=== PATIENT | female | born 1985 | race African-American/Black ===

== ENCOUNTER 2018-09-20 09:18 | Inpatient (IN) | payer BC, OTHER ==
[2018-09-20 09:38] LABS: Bilirubin Negative (Negative); Blood, Urine Moderate (Negative); Clarity CLOUDY (Clear); Glucose, Urine (Dipstick) 100 mg/dL (Negative); Leukocyte Negative (Negative); Nitrite Negative (Negative); Protein, Urine (Dipstick) > or equal to 300 mg/dL (Neg-Trace); Specific Gravity, Urine 1.017 (1.002-1.036); Urobilinogen 0.2 mg/dL (0.2-1.0); pH, Urine 6.5 (5.0-9.0)
[2018-09-20 09:40] LABS: RBC/HPF 0-3 HPF (0-3)
[2018-09-20 09:44] LABS: BHCG - Serum POSITIVE; Pregs Control Background? CLEAR/WHITE (CLR/WHITE); Pregs Control Bar Appear? YES (CONTROL BAR)
[2018-09-20 09:44] LABS: Pathc Cast-AUWi Flag 11.42 (0-2.49)
[2018-09-20 09:58] LABS: Amphetamine Not Detected (NotDetected); Barbiturates Screen Not Detected (NotDetected); Benzodiazepine Screen Not Detected (NotDetected); Cocaine Metabolite Screen Detected (NotDetected); Medtox Control Line Valid? VALID (VALID); Medtox Reader # READER 4; Methadone Not Detected (NotDetected); Methamphetamine Not Detected (NotDetected); Opiate Screen Not Detected (NotDetected); Oxycodone Screen Not Detected (NotDetected); Phencyclidine (PCP) Detected (NotDetected); THC/Cannabinoid Screen Not Detected (NotDetected); Tricyclic Screen Not Detected (NotDetected)
[2018-09-20 10:00] LABS: Bacteria/HPF Rare-Few HPF (None Seen); Hyaline Casts/LPF 0-3 HYALINE CAST LPF (0-3 Hyaline); Renal Epithelial None Seen HPF (0-3); Squamous Epithelial 0-3 HPF (0-3); Transitional Epithelial NONE SEEN HPF (0-3)
[2018-09-20] MEDS ORDERED: Labetalol HCl 100 MG/20 ML VIAL SLOW IVP SCH (10:01)
[2018-09-20] MEDS ORDERED: Calcium Gluc 4.6 MEQ/10 ML (100 MG/ML) SLOW IVP PRN (10:01)
[2018-09-20 10:02] LABS: ALT (SGPT) 11 U/L (8-55); AST (SGOT) 20 U/L (5-34); Albumin 2.9 g/dL (3.5-5.0); Alkaline Phosphatase 165 U/L (40-150); Anion Gap 20 mmol/L (10-20); BUN (Urea Nitrogen) 14 mg/dL (8.9-20.6); Bilirubin, Total 0.3 mg/dL (0.2-1.2); Calc. Creatinine Clearance 0 mL/min (70-130); Calcium 9.2 mg/dL (7.8-10.44); Carbon Dioxide 15 mmol/L (22-29); Chloride 107 mmol/L (98-107); Estimated GFR-MDRD 67; Globulin 3.7 g/dL (2.4-3.5); Glucose 100 mg/dL (70-105); Potassium 3.3 mmol/L (3.5-5.1); Protein, Total 6.6 g/dL (6.0-8.3); Sodium 139 mmol/L (136-145)
[2018-09-20 10:13] LABS: #Basophils 0.2 thou/uL (0.0-0.2); #Lymphocytes 4.9 thou/uL (1.20-3.40); #Monocytes 1.1 thou/uL (0.11-0.59); #Neutrophils 11.5 thou/uL (1.40-6.50); %Basophils 0.9 % (0.0-1.0); %Eosinophils 0.2 % (0.0-10.0); %Lymphocytes 27.6 % (21.0-51.0); %Monocytes 6.4 % (0.0-10.0); %Neutrophils 64.9 % (42.0-75.0); Lymphocytes 25 % (21-51); MDiff Complete? YES; Mean Corpuscular HGB CONC 32.9 g/dL (32.0-36.0); Mean Platelet Volume 9.3 fL (7.4-10.4); Monocytes 6 % (0-10); Neutrophil 69 % (42-75); Platelet Count 300 thou/uL (130-400); Platelet Morphology Comment Appears Adequate; Polychromasia SLIGHT = 2-3 cells (100X) (0-2/hpf); RBC Distribution Width 15.4 % (11.5-14.5); Red Blood Cell (RBC) Count 5.02 mill/uL (4.70-6.10); White Blood Cell (WBC) Count 17.7 thou/uL (4.8-10.8)
[2018-09-20 10:21] LABS: Acetaminophen Less than 6.0 mcg/mL (10.0-30.0); Alcohol Less than 10 mg/dL (Less than 10); Salicylate Less than 8.0 mg/dL (15.0-30.0)
--- NOTE | 2018-09-20 10:26 | PDOC.LDHP ---
Labor and Delivery H&P Chief complaint: other (Elevated BPs) HPI: 35 y/o at unknown EGA presented to ED with syncopal episode after cocaine, PCP use. Known to be but thought she was only 2-3 months. No PNC. Denies VB, LOF, pain or other concerns. Hit her right eye when she fell. ROS neg for HEENT, CV, pulm, GI, , neuro, psych, skin, musculoskeletal, or constitutional symptoms other than mentioned above. OB History Details: 1 prior miscarriage at "5 months" - doesn't remember who took care of her. Delivered here. Reports secondary to high blood pressure Current complications: none Past Medical History: Hypertension Current medications: none Previous surgical history: none Social history: drug use (cocaine, PCP) - Physical Exam Abnormal vital signs: Severe range BPs General: NAD, resting, other (right eye periorbital edema noted) Lungs: nonlabored breathing Abdomen: gravid Extremeties: no edema - OB Labs Blood type: A RH: positive Antibody Screen: negative - Assessment Severe range BPs after drug use with unknown history - Plan -: 1. Admit to L&D 2. US for dating 3. Antihypertensive medications - has received 60mg IV labetalol in ED 4. Celestone 5. NICU consult 6. Anesthesia consult 7. Follow up labs ordered 8. Magnesium 4g bolus, 2g per hour
[2018-09-20] MEDS ORDERED: Magnesium Sulfate 20 gm/500 ml 20 GM/500 ML BAG ONE (10:40)
[2018-09-20] MEDS ORDERED: Magnesium Sulfate 20 GM/WATER 500 ML BAG IVPB SCH (10:45)
[2018-09-20] MEDS ORDERED: Betamet Acet/Betamet Na Ph 30 MG/5 ML VIAL ONE (10:47)
[2018-09-20] MEDS ORDERED: Succinylcholine Chloride 20 MG/ML 10 ml SYRINGE FS ONE (10:48)
[2018-09-20] MEDS ORDERED: Rocuronium Bromide 10 MG/ML (10ML VIAL) ONE ×2 (10:48→11:41)
[2018-09-20] MEDS ORDERED: PROPOFOL 200 MG/20 ML VIAL ONE (10:48)
[2018-09-20] MEDS ORDERED: PHENYLEPHRINE-NS 100 MCG/ML 10 ML SYRINGE ONE ×2 (10:48→12:41)
[2018-09-20] MEDS ORDERED: hydrALAZINE 20 MG/ML VIAL ONE ×2 (11:04→11:12)
[2018-09-20] MEDS ORDERED: Labetalol HCl 100 MG/20 ML VIAL ONE (11:08)
[2018-09-20] MEDS ORDERED: hydrALAZINE 20 MG/ML VIAL SLOW IVP SCH (11:15)
[2018-09-20 11:25] LABS: HBSAg Index 0.25 S/CO (0-0.99); HIV (1/2) Antibody/Antigen Non-Reactive (NonReactive); HIV 1/2 INDEX 0.15 S/CO (<1.00); Hep B Surf Ag Non-Reactive S/CO (NonReactive); Syphilis Antibody Nonreactive (Nonreactive); Syphilis Antibody Index 0.03 S/CO (<1.00 Non-Reactive)
[2018-09-20] MEDS ORDERED: Oxytocin 10 UNITS/ML VIAL ONE (11:47)
[2018-09-20] MEDS ORDERED: Fentanyl 100 MCG/2 ML VIAL ONE ×2 (11:55)
[2018-09-20] MEDS ORDERED: Midazolam HCl 2 mg/2 ml Vial ONE (11:57)
[2018-09-20 11:58] LABS: Actual Bicarbonate (HCO3a) 21.9 mEq/L (22-28); Base Excess (BEa) -8.6 mEq/L (-2.0 to +3.0)
[2018-09-20] MEDS ORDERED: PROPOFOL 0 ML ONE (12:34)
[2018-09-20] MEDS ORDERED: Propofol 1,000 MG/100 ML VIAL IV ONE (13:02)
[2018-09-20] MEDS ORDERED: Ventilator Sedation Protocol 1 EACH FS ONE (13:07)
[2018-09-20] MEDS ORDERED: Morphine 2 MG/ML SYRINGE SLOW IVP PRN (13:13)
[2018-09-20] MEDS ORDERED: DISCONTINUE PREVIOUS NARCOTIC PAIN MEDICATIONS AND BENZODIAZEPINES FS SCH (13:13)
[2018-09-20] MEDS ORDERED: Fentanyl BOLUS 250 ML IVPB PRN (13:13)
[2018-09-20] MEDS ORDERED: fentaNYL Citrate/PF 2,000 MCG in Sodium Chloride 0.9% 60 ML IV SCH (13:13)
--- NOTE | 2018-09-20 13:19 | ULT ---
OBSTETRICAL ULTRASOUND: INDICATIONS: History of pre-eclampsia and history of fall. Positive for PCP and cocaine. FINDINGS: There is a single live intrauterine gestation, in vertex presentation. Cardiac activity is noted at 111 beats per minute. The amniotic fluid level appears low, qualitatively. The JAYDA measured 3.9 cm. This is well below the 2.5th percentile for gestational age. This and advanced gestational age shaffer its the survey. The cervical length was 3.6 cm. The biparietal diameter measured 7.66 cm, giving an estimated gestational age of 30 weeks 5 days. The head circumference measured 28.71 cm, giving a gestational age of 31 weeks 4 days. The abdominal circumference measured 26.35 cm, giving a gestational age of 30 weeks 3 days. The femoral length measured 5.8 cm, giving a gestational age of 30 weeks 5 days. Estimated weight is 1615 g, plus or minus 239 g. The average gestational age, based on biometrics, is 30 weeks 6 days. Estimated due date is . On the biophysical profile, there was 0/2 for tone, 0/2 for breathing, 0/2 for move ment, and 1/2 for amniotic fluid index. IMPRESSION: 1. Biophysical profile of 07/10. The examination was verbally reported to the obstetrical/gynecologic al nurse, Sarah, at the time of this examination, by the lift team technician. 2. Oligohydramnios. 3. Advanced gestational age and limited amniotic fluid volume limits survey. 4. The fetus is in a vertex presentation with an anterior placenta without overt evidence of previa. The cervical length is 3.6 cm. POS: [facility]
[2018-09-20] MEDS ORDERED: Vecuronium 10 MG VIAL ONE (13:26)
[2018-09-20] MEDS: Vecuronium 10 MG VIAL IV PRN ×3 (13:30→20:50)
--- NOTE | 2018-09-20 13:32 | PDOC.EVN ---
Event Note - Event Note Event Note: Late Entry: Patient given a total of 180mg of Labetalol and 30mg of hydralazine with little to no improvement of blood pressures. assessment with ultrasound revealed a 30+ week fetus with a BPP of 0/8. BPP assessment completed with NST showing minimal variability and recurrent late decelerations and the decision was made to proceed with emergent LTCS. This was explained to the patient who verbally agreed but due to her being under the influence of drugs, consent was also obtained from her brother. See op note for full details of the procedure. Patient to ICU following surgery for further medical management. Head trauma has not been evaluated but patient was verbal and able to move all extremities prior to surgery.
--- NOTE | 2018-09-20 13:33 | PDOC.OPDEL ---
OB Operative/Delivery Note Delivery Dr/Surgeon: Lisa Garcia MD Assist: Ivelisse Cruz MD Pre-Delivery Diagnosis: non-reassuring tracing Procedure/Post Delivery Dx: primary low transverse CS Weeks gestation: 30 Anesthesia: other (general) - Findings A Sex: male Weight: 3 lb 8.438 oz - 1 min: 7 - 5 min: 8 - Additional Findings/Plan Placenta delivered: spontaneous findings: low transverse hysterotomy without extension, normal uterus, normal tubes, normal ovaries Estimated blood loss: QBL 522ml Compilations/Other Findings: Male with spontaneous cry, NICU present for delivery. Post delivery plan: recovery in LICU (CCU)
[2018-09-20] MEDS: Betamet Acet/Betamet Na Ph 30 MG/5 ML VIAL IM SCH (13:49)
[2018-09-20] MEDS: Lactated Ringer's 1,000 ML IV SCH ×2 (13:50→20:12)
[2018-09-20 13:53] LABS: Actual Bicarbonate (HCO3a) 18.5 mEq/L (22-28); Base Excess (BEa) -6.6 mEq/L (-2.0 to +3.0); CO2 Tension 35.8 mmHg (35.0-45.0); Calcium, Ionized 1.19 mmol/L (1.12-1.30); Carboxyhemoglobin (COHb) 1.1 gm% (0.0-3.0); Hemoglobin (Hb) 13.6 g/dL (12.0-16.0); O2 Tension (PaO2) 69.9 mmHg (80.0-100.0); Potassium - ABG Lab 3.25 mmol/L (3.70-5.30); pH, Arterial 7.33 (7.35-7.45)
[2018-09-20] MEDS ORDERED: Sterile Water 10 ML ONE ×2 (14:20→19:56)
--- NOTE | 2018-09-20 15:26 | CT ---
CT HEAD NONCONTRAST: Date: 09/20/18 INDICATION: Fall with head injury, pain. FINDINGS: There is marked abnormal hypoattenuation insinuating within bilateral cerebral white matter, more ext ensive on the left, although is diffusely present throughout each cerebral hemisphere. There is no ve ntriculomegaly, mass effect, or midline shift. No parenchymal hemorrhage or extra-axial hemorrhage of acuity evident. There is scattered paranasal sinus mucosal thickening. There is focal mild scalp pro minence of the posterior right parietooccipital scalp and mild bilateral periorbital soft tissue prom inence. IMPRESSION: Diffuse infiltrating white matter hypodensity throughout each cerebral hemisphere, more pronounced on the left. This may relate to posterior reversible encephalopathy syndrome, in light of patient's per ipartum state. Alternatively, an infectious/inflammatory encephalitis should be considered. Recommend pre and postcontrast brain MRI for further evaluation. Telephone call findings placed to patient's physician, Aly Balderas MD, 1410 hours, 09/20/18. CODE CR.
[2018-09-20] MEDS: hydrALAZINE 20 MG/ML VIAL SLOW IVP PRN ×2 (15:59→20:12)
--- NOTE | 2018-09-20 16:06 | OP ---
DATE OF PROCEDURE: 09/20/2018 PREOPERATIVE DIAGNOSES: 1. Estimated 30-week intrauterine . 2. Drug abuse - Cocaine and PCP 3. Hypertensive emergency. 4. Non-reassuring status. POSTOPERATIVE DIAGNOSES: 1. Estimated 30-week intrauterine . 2. Drug abuse - Cocaine and PCP 3. Hypertensive emergency. 4. Non-reassuring status. PROCEDURE PERFORMED: Emergent low-transverse section. SURGEON: Lisa Garcia MD [employer] AL[employer]ATION: Ivelisse Cruz MD ANESTHESIA: General endotracheal. COMPLICATIONS: None. QUANTITATIVE BLOOD LOSS: 522 mL. FINDINGS: Normal uterus, tubes, and ovaries. Male infant in cephalic presentation with spontaneous cry. INDICATIONS: The patient presented after a syncopal episode following cocaine and PCP use. She stated she was unaware that she was . Once she arrived to the emergency department and she was found to be more than 20 weeks gestation, she was sent to Labor and Delivery for evaluation. She was found to have blood pressures in the 200s systolic which had minimal to no improvement following a total of 180 mg of labetalol and 30 mg of hydralazine. assessment was performed for dating and a BPP was performed which was essentially 0/8. The assessment was completed with an NST which showed minimal to absent variability with recurrent late decelerations. The decision was made to proceed with emergent low-transverse section, so that further stabilization of the mom and baby could occur. DESCRIPTION OF PROCEDURE: The patient was taken to the operating room where general anesthesia was obtained without difficulty. She was prepared and draped in normal sterile fashion in the dorsal supine position with a leftward tilt. A Pfannenstiel skin incision was made with a scalpel and carried down to the underlying layer of fascia. The fascia was incised with a scalpel and extended laterally with Hernández scissors. The rectus fascia was dissected off the rectus muscles bluntly. The rectus muscles were in the midline. The peritoneum was entered bluntly and extended superiorly and inferiorly with good visualization of the bladder. The Curly retractor was placed in the abdomen. A lower uterine incision was made with a scalpel and extended with cephalocaudal traction. The infant's head was delivered atraumatically and the cord was clamped and cut. The infant was handed off to the waiting NICU team, but was noted to have a spontaneous cry. The placenta was delivered spontaneously and the uterus was cleared of all clots and debris. The hysterotomy was repaired in a running locked fashion with #1 Monocryl in two layers with good hemostasis noted. The abdomen was copiously irrigated. The Curly retractor was removed and again good hemostasis was noted. The fascia was repaired in a running fashion with 0 PDS. The subcutaneous tissue was reapproximated and the skin was closed with 4-0 Monocryl. The patient tolerated the procedure. Sponge, lap, and needle counts were correct x2. The patient was taken to the ICU intubated as planned prior to procedure for further management of her hypertensive crisis and potential withdrawal from drugs. Job ID: [id number] MTDD
[2018-09-20] MEDS: Propofol 1,000 MG/100 ML VIAL IV PRN ×3 (17:40→23:59)
--- NOTE | 2018-09-20 18:37 | MRI ---
MRI OF BRAIN WITH AND WITHOUT CONTRAST: 09/20/18 HISTORY: Hypertensive encephalopathy. COMPARISON: CT brain same day. FINDINGS: Corresponding to the CT findings are extensive bilateral relatively symmetric frontal, parietal, occi pital cortical and subcortical white matter hyperdensities. There is also involvement of the cerebell um as well as the daisy. There is a subtle focus of left frontal linear microhemorrhage at the cortica l and subcortical junction. This is best seen on the gradient axial image 19. No pontine hemorrhage i s appreciated. There is involvement of the bilateral thalami as well as both basal ganglia. There is no midline shift. No significant mass effect. No mass-like enhancement. Mild mucosal thickening of the ethmoids. On the diffusion weighted sequence, there are no focal areas of abnormal diffusion restriction. IMPRESSION: Findings suggesting posterior reversible encephalopathy syndrome. Subtle focus of hemorrhage in the left frontal intraparenchymal subcortical white matter. POS: [facility]
[2018-09-20] MEDS: Magnesium Sulfate 20 gm/500 ml 20 GM/500 ML BAG IVPB SCH (19:40)
[2018-09-20] MEDS: niCARdipine HCl 50 MG in Sodium Chloride 0.9% 250 ML 230 ML IVPB SCH (20:31)
--- NOTE | 2018-09-21 00:23 | CON ---
DATE OF CONSULTATION: HISTORY OF PRESENT ILLNESS: Ms. Hall is 33-year-old. I am told by the nursing staff that she has lost a baby with miscarriage in the past. She presented after being found down at home. She apparently fell and hit her face on the floor. There is no history of an altercation. She was found to be in the emergency department. Apparently, she could give an intermittent history and claims she did not know she was . She subsequently was found to have an intrauterine that was in distress and the baby was delivered via after she was intubated. Unfortunately, her drug screen is positive for PCP and cocaine. She subsequently was transferred to critical care unit. We have done a head CT which did not show a bleed. An MRI is being done to rule out hypertensive encephalopathy. She was apparently significantly hypertensive on admission. Last blood pressure in the Critical Care Unit for going down for the MRI was 144/101, heart rate was 66. PAST MEDICAL HISTORY: Otherwise unknown. FAMILY HISTORY: Unknown. SOCIAL HISTORY: As above. REVIEW OF SYSTEMS: Not obtainable. PHYSICAL EXAMINATION: GENERAL: She is intubated. VITAL SIGNS: Blood pressure 144/101, heart rate is in the 60s, respiratory rate is per mechanical ventilation. HEENT: Pupils are equal. Sclerae anicteric. NECK: Supple. No lymphadenopathy. LUNGS: Clear. HEART: Regular rhythm, S1 and S2 normal. ABDOMEN: Soft and nontender. EXTREMITIES: Without clubbing, cyanosis, or edema. She has a bandage over her low incision. LABORATORY DATA: PH 7.33, pCO2 of 35, pO2 of 69. White count 17.7, hemoglobin 14, platelets 300. Sodium 139, potassium 3.3, chloride 107, bicarb 15, BUN 14, creatinine 1.47, alkaline phosphatase 165, albumin 2.9. Liver enzymes were normal. Glucose 111. Urinalysis was remarkable for significant proteinuria, greater than 300 mg/dL protein. IMPRESSION: Encephalopathy on presentation, most likely related to complications of and hypertension. She will remain mechanically ventilated. We will obtain MR imaging. There is no reason to think that she has encephalitis or meningitis. This was in the differential for the CT scan findings. We will try to control her blood pressure with sedation and Cardene if necessary. We will follow the other physicians caring for her. CRITICAL CARE TIME: 40 minutes. Job ID: [id number]
[2018-09-21] MEDS: Vecuronium 10 MG VIAL IV PRN ×4 (01:38→22:05)
[2018-09-21] MEDS: Propofol 1,000 MG/100 ML VIAL IV PRN ×4 (03:55→20:08)
[2018-09-21 05:32] LABS: Anion Gap 16 mmol/L (10-20); BUN (Urea Nitrogen) 17 mg/dL (7.0-18.7); Calc. Creatinine Clearance 117 mL/min (70-130); Calcium 8.1 mg/dL (7.8-10.44); Carbon Dioxide 20 mmol/L (22-29); Chloride 105 mmol/L (98-107); Estimated GFR-MDRD 50; Glucose 109 mg/dL (70-105); Potassium 3.6 mmol/L (3.5-5.1); Sodium 137 mmol/L (136-145)
[2018-09-21] MEDS: Magnesium Sulfate 20 gm/500 ml 20 GM/500 ML BAG IVPB SCH (05:47)
[2018-09-21 07:15] LABS: Actual Bicarbonate (HCO3a) 23.4 mEq/L (22-28); Base Excess (BEa) -1.4 mEq/L (-2.0 to +3.0); CO2 Tension 39.9 mmHg (35.0-45.0); Calcium, Ionized 1.11 mmol/L (1.12-1.30); Carboxyhemoglobin (COHb) 0.7 gm% (0.0-3.0); Hemoglobin (Hb) 12.7 g/dL (12.0-16.0); O2 Tension (PaO2) 78.7 mmHg (80.0-100.0); Potassium - ABG Lab 3.29 mmol/L (3.70-5.30); pH, Arterial 7.39 (7.35-7.45)
--- NOTE | 2018-09-21 07:16 | RAD ---
CHEST ONE VIEW: INDICATIONS: Intubation. COMPARISON: Prior chest radiograph dated 11/22/2006. FINDINGS: The patient is intubated with the ET tube at the thoracic inlet. A gastric catheter projects below t he left hemidiaphragm, beyond the field of view. There is moderate cardiomegaly with mild pulmonary vascular congestion, and small bilateral pleural effusions. No definite pneumothorax is evident. IMPRESSION: 1. Cardiomegaly with pulmonary vascular congestion and mild bilateral pleural effusions. Recommend correlation for volume overload. 2. Endotracheal tube and gastric catheter. POS: [facility]
[2018-09-21 07:17] LABS: ALV-art Gradient 227.925 (0-20); Puncture Site RRA
--- NOTE | 2018-09-21 07:45 | PDOC.PP ---
Post Progress Note Post Day #: 1 Subjective: Intubated and sedated, unable to obtain history. Vital Signs (12 hours) Temp Pulse Resp BP Pulse Ox 09/21/18 07:08 79 09/21/18 06:00 16 09/21/18 04:00 16 09/21/18 03:00 97.7 F 09/21/18 02:00 28 H 09/21/18 00:00 16 09/20/18 23:00 97.6 F 09/20/18 22:00 16 09/20/18 20:12 72 156/108 H 09/20/18 20:00 16 95 Weight Weight 295 lb 10.238 oz Most Recent Monitor Data Heart Rate from ECG 74 NIBP 113/67 NIBP BP-Mean 82 Respiration from ECG 16 SpO2 93 - Physical Examination General: NAD Respiratory: non-labored breathing Abdominal: no distention Skin: CS incision dry & intact (dressing clean, dry, and intact.) Result Diagrams: 09/20/18 09:28 09/21/18 04:29 Additional Labs: Post Labs Blood Type A POSITIVE 09/20/18 10:36 Hep Bs Antigen Non-Reactive S/CO (NonReactive) 09/20/18 10:36 - Assessment/Plan Patient on nicardipine drip with BPs now in normal range. C/s dressing appears clean and dry. Lochia wnl. Case Management consult after patient returns to floor for + drug screen and no PNC. Continue per critical care recommendations.
[2018-09-21] MEDS ORDERED: Prevnar 13-Val Conj/PF 0.5 ML SYRINGE IM ONE (09:00)
[2018-09-21 09:51] LABS: Hemoglobin 14.2 g/dL (12.0-16.0); Mean Corpuscular Hemoglobin 27.5 pg (27.0-31.0); Mean Corpuscular Volume 85.7 fL (78.0-98.0); Mean Platelet Volume 6.5 fL (7.4-10.4); Platelet Count 235 thou/uL (130-400); RBC Distribution Width 17.1 % (11.5-14.5); Red Blood Cell (RBC) Count 5.18 mill/uL (4.20-5.40); White Blood Cell (WBC) Count 19.9 thou/uL (4.8-10.8)
[2018-09-21 09:58] LABS: Band 2 % (5-11); Hypersemented Neutrophil SLIGHT; Lymphocytes 4 % (21-51); MDiff Complete? YES; Monocytes 4 % (0-10); Neutrophil 89 % (42-75); Platelet Clumps SLIGHT; Platelet Morphology Comment Appears Adequate; Reactive Lymphocytes 1 % (0-10); Vacuoles SLIGHT
--- NOTE | 2018-09-21 10:34 | PRG ---
DATE OF SERVICE: 09/21/2018 SUBJECTIVE: Ms. Hall is stable overnight. We met with her 2 brothers and answered all their questions. MRI last night showed PRES. She will not awaken completely and follow commands. Her sedation slowly being decreased and she has been started on Precedex. OBJECTIVE: VITAL SIGNS: Blood pressure 127/74, heart rate 80, and respiratory rates in the high 20s. LUNGS: Clear. HEART: Regular rhythm. S1 and S2 are normal. ABDOMEN: Soft and nontender. EXTREMITIES: Without clubbing or cyanosis. Only remarkable for 1+ edema. DIAGNOSTIC DATA: Chest radiograph shows small bilateral effusions. LABORATORY DATA: White count 19.9, hemoglobin 14.2, platelets 235. Sodium 137, potassium 3.6, chloride 105, bicarb 20, BUN 17, and creatinine 1.47. IMPRESSION: 1. Hypertensive encephalopathy. 2. Status post emergent for distress. 3. Cocaine and PCP on a drug screen on admission. 4. No care. Her brothers told me that she told 2 cousins that she was , so she knew she was . 5. Pleural effusions related uncontrolled hypertension and probable nephrotic range proteinuria. LABORATORY DATA: Her pH 7.39, CO2 of 39, and pO2 of 78. As her neurological status improves, we can proceed towards weaning, but she is not weanable today as I have explained to family. I answered all their questions to their satisfaction. CRITICAL CARE TIME: 30 minutes. Job ID: [id number]
[2018-09-21] MEDS: Lactated Ringer's 1,000 ML IV SCH ×3 (11:18→15:15)
[2018-09-21] MEDS: Betamet Acet/Betamet Na Ph 30 MG/5 ML VIAL IM SCH (11:35)
[2018-09-21] MEDS ORDERED: Pantoprazole 40 MG VIAL IVP SCH (12:15)
[2018-09-21] MEDS: Lorazepam 2 MG/ML VIAL SLOW IVP PRN (14:22)
[2018-09-21 14:54] LABS: Actual Bicarbonate (HCO3a) 23.8 mEq/L (22-28); Base Excess (BEa) 0.3 mEq/L (-2.0 to +3.0); CO2 Tension 34.8 mmHg (35.0-45.0); Calcium, Ionized 1.06 mmol/L (1.12-1.30); Carboxyhemoglobin (COHb) 0.6 gm% (0.0-3.0); Hemoglobin (Hb) 11.7 g/dL (12.0-16.0); pH, Arterial 7.45 (7.35-7.45)
[2018-09-21 14:58] LABS: O2 Tension (PaO2) 39.3 mmHg (80.0-100.0); Puncture Site LRA
[2018-09-21] MEDS ORDERED: Furosemide 100 MG/10 ML VIAL SLOW IVP SCH (15:00)
[2018-09-22] MEDS: Vecuronium 10 MG VIAL IV PRN ×6 (02:00→22:52)
[2018-09-22] MEDS: Propofol 1,000 MG/100 ML VIAL IV PRN ×5 (02:00→20:37)
[2018-09-22] MEDS: Lactated Ringer's 1,000 ML IV SCH ×3 (02:54→21:40)
[2018-09-22] MEDS: Lorazepam 2 MG/ML VIAL SLOW IVP PRN ×2 (03:06→07:27)
[2018-09-22] MEDS: niCARdipine HCl 50 MG in Sodium Chloride 0.9% 250 ML 230 ML IVPB SCH (04:01)
[2018-09-22 06:52] LABS: Actual Bicarbonate (HCO3a) 27.2 mEq/L (22-28); Base Excess (BEa) 0.7 mEq/L (-2.0 to +3.0); CO2 Tension 51.2 mmHg (35.0-45.0); Calcium, Ionized 1.06 mmol/L (1.12-1.30); Carboxyhemoglobin (COHb) 0.9 gm% (0.0-3.0); Hemoglobin (Hb) 13.1 g/dL (12.0-16.0); Potassium - ABG Lab 3.39 mmol/L (3.70-5.30); pH, Arterial 7.34 (7.35-7.45)
[2018-09-22 06:55] LABS: Puncture Site RRA
--- NOTE | 2018-09-22 09:11 | RAD ---
PORTABLE CHEST: DATE: 09/22/2018. PROVIDED CLINICAL HISTORY: Respiratory insufficiency. FINDINGS: Comparison 09/21/2018. Interval increase in right basilar pleural parenchymal opacity. Endotracheal tube and enteric catheter persist. Patchy left basilar parenchymal opacity is noted. No evidence fo r pneumothorax. IMPRESSION: Increasing right basilar pleural parenchymal opacity. POS: [facility]
[2018-09-22] MEDS: Pantoprazole 40 MG VIAL IVP SCH (09:26)
--- NOTE | 2018-09-22 09:28 | PRG ---
DATE OF SERVICE: 09/22/2018 TIME SPENT: This is 35 minutes of critical care time. SUBJECTIVE: The patient remains sedated on mechanical ventilation, still having significant problems with oxygenation. OBJECTIVE: VITAL SIGNS: On exam, temperature is 97.7, pulse 66, and blood pressure 93/45 ranging up to 151/101. A 24-hour intake 2786, output 3115. HEENT: Unremarkable except for periorbital edema. NECK: No JVD. LUNGS: Diminished breath sounds throughout, particularly in right lower lobe. CARDIOVASCULAR: S1 and S2, regular. ABDOMEN: Soft, obese, and nontender. EXTREMITIES: Edematous. IMAGING DATA: Her chest x-ray shows infiltrate versus mucus plugging versus collapse in the right lower lobe. She has significant pulmonary edema bilaterally. LABORATORY DATA: Sodium 137, potassium 3.6, chloride 105, CO2 of 20, BUN 17, creatinine 1.5 and glucose 111. PH of 7.34, pCO2 of 51, pO2 of 65 that is on SIMV rate of 16, tidal volume 500, PEEP 10, pressure support 12, and FiO2 of 100%. White blood cell count 19.9, hematocrit 44, and platelet count 235. ASSESSMENT: 1. Hypertensive encephalopathy. 2. Hypertensive nephrosclerosis - urine output appears to be depending on the high blood pressure. 3. Status post emergent section for distress. 4. Drug abuse. 5. Pleural effusions versus mucus plugging. PLAN: 1. Given her significant hypoxemia, I will go ahead and proceed with bronchoscopy today. She did not do well with diuresis yesterday as that dropped her blood pressure significantly, so I will cut back her IV fluids and hold diuresis at the current time. 2. Prognosis remains extremely guarded. Job ID: [id number]
--- NOTE | 2018-09-22 10:15 | OP ---
DATE OF PROCEDURE: 09/22/2018 PROCEDURE PERFORMED: Bronchoscopy. PREOPERATIVE DIAGNOSIS: Right lower lobe mucus plugging. POSTOPERATIVE DIAGNOSIS: Right and left lower lobe mucus plugging. INDICATION FOR PROCEDURE: Refractory hypoxemia with evidence of collapse in the right lower lobe on x-ray. ANESTHESIA: The patient was under conscious sedation via mechanical ventilation prior to the procedure. DESCRIPTION OF PROCEDURE: Procedure was done on an emergent basis. The patient is having difficulty oxygenating. A 2.2 Pentax bronchoscope was placed down the patient's endotracheal tube, while she was on volume cycle ventilation. She had extensive mucous plugging present in the right lower lobe, which required aggressive lavage with normal saline and to remove all the plugs. Similarly, she had extensive mucous plugging in the left lower lobe, which was also lavaged with saline. The left upper lobe, right middle lobe, and right upper lobe were cleared of secretions. She tolerated the procedure well. Job ID: [id number]
[2018-09-22] MEDS: Enoxaparin Sodium 40 MG/0.4 ML SYRINGE SC SCH (10:59)
[2018-09-22] MEDS: Piperacillin/Tazobactam 3.375 GM in Sodium Chloride 0.9% 100 ML IVPB SCH ×3 (10:59→21:40)
[2018-09-22] MEDS ORDERED: Enoxaparin Sodium 40 MG/0.4 ML SYRINGE SC SCH (11:00)
[2018-09-23] MEDS: Propofol 1,000 MG/100 ML VIAL IV PRN ×6 (00:31→20:53)
[2018-09-23] MEDS: Piperacillin/Tazobactam 3.375 GM in Sodium Chloride 0.9% 100 ML IVPB SCH ×4 (04:12→21:01)
[2018-09-23] MEDS: Vecuronium 10 MG VIAL IV PRN (06:07)
[2018-09-23 07:28] LABS: Actual Bicarbonate (HCO3a) 27.1 mEq/L (22-28); Base Excess (BEa) 1.5 mEq/L (-2.0 to +3.0); CO2 Tension 46.7 mmHg (35.0-45.0); Calcium, Ionized 1.08 mmol/L (1.12-1.30); Carboxyhemoglobin (COHb) 1.1 gm% (0.0-3.0); Hemoglobin (Hb) 11.3 g/dL (12.0-16.0); O2 Tension (PaO2) 67.7 mmHg (80.0-100.0); Potassium - ABG Lab 3.31 mmol/L (3.70-5.30); pH, Arterial 7.38 (7.35-7.45)
[2018-09-23 07:29] LABS: ALV-art Gradient 159.125 (0-20); Puncture Site LRA
[2018-09-23] MEDS: hydrALAZINE 20 MG/ML VIAL SLOW IVP PRN (07:34)
--- NOTE | 2018-09-23 07:48 | PDOC.PP ---
Post Progress Note Post Day #: 2 Subjective: Remains intubated and sedated. 09/22/18 09/22/18 09/22/18 06:00 06:40 07:00 Temperature 97.7 F Pulse Rate 103 H Respiratory 16 Rate Blood Pressure 157/95 H O2 Sat by Pulse Oximetry 09/22/18 09/22/18 09/22/18 08:00 10:00 10:18 Temperature 97.7 F Pulse Rate 107 H Respiratory 16 16 Rate Blood Pressure 161/104 H O2 Sat by Pulse 92 L Oximetry - Physical Examination General: NAD Abdominal: lochia (normal), no distention, appropriately TTP Skin: CS incision dry & intact, no rash Deviation from normal: Sedated Result Diagrams: 09/21/18 08:59 09/21/18 04:29 Additional Labs: Post Labs Blood Type A POSITIVE 09/20/18 10:36 Hep Bs Antigen Non-Reactive S/CO (NonReactive) 09/20/18 10:36 - Assessment/Plan POD2 s/p emergent LTCS for distress. Incision with no e/o infection. Bleeding wnl. BPs very labile. MgSO4 d/c'd. Continue per CCU recommendations.
--- NOTE | 2018-09-23 07:55 | PDOC.PP ---
Post Progress Note Post Day #: 3 Subjective: Remains intubated and sedated. Vital Signs (12 hours) Temp Pulse Resp BP Pulse Ox 09/23/18 07:34 100 199/121 H 09/23/18 07:04 100 195/122 H 09/23/18 06:00 16 09/23/18 04:00 18 09/23/18 03:00 98.4 F 09/23/18 02:19 81 09/23/18 02:00 16 09/23/18 00:00 16 09/22/18 23:00 98.8 F 09/22/18 22:00 16 09/22/18 21:51 70 98/58 L 09/22/18 20:00 16 95 Weight Admit Weight 293 lb 3.437 oz Weight 298 lb 11.622 oz Most Recent Monitor Data Heart Rate from ECG 106 NIBP 195/122 NIBP BP-Mean 146 Respiration from ECG 16 SpO2 96 - Physical Examination General: NAD Abdominal: lochia (normal), no distention, appropriately TTP Skin: CS incision dry & intact, no rash Result Diagrams: 09/21/18 08:59 09/21/18 04:29 Additional Labs: Post Labs Blood Type A POSITIVE 09/20/18 10:36 Hep Bs Antigen Non-Reactive S/CO (NonReactive) 09/20/18 10:36 (1) Cocaine use complicating in third trimester Code(s): O99.323 - DRUG USE COMPLICATING , THIRD TRIMESTER; F14.90 - COCAINE USE, UNSPECIFIED, UNCOMPLICATED Status: Acute (2) Non-reassuring heart rate, delivered, current hospitalization Code(s): O76 - ABNLT IN HEART RATE AND RHYTHM COMP LABOR AND DELIVERY Status: Acute (3) Delivery by emergency section Code(s): O82 - ENCOUNTER FOR DELIVERY WITHOUT INDICATION Status: Acute (4) Hypertensive emergency Code(s): I16.1 - HYPERTENSIVE EMERGENCY Status: Acute - Assessment/Plan POD3 s/p emergent LTCS for distress. Incision with no e/o infection. Bleeding wnl. BPs continue to be labile. Continue per CCU recommendations.
[2018-09-23] MEDS: niCARdipine HCl 50 MG in Sodium Chloride 0.9% 250 ML 230 ML IVPB SCH (07:59)
[2018-09-23 08:04] LABS: Anion Gap 14 mmol/L (10-20); BUN (Urea Nitrogen) 29 mg/dL (7.0-18.7); Calc. Creatinine Clearance 120 mL/min (70-130); Calcium 7.8 mg/dL (7.8-10.44); Carbon Dioxide 25 mmol/L (22-29); Chloride 108 mmol/L (98-107); Estimated GFR-MDRD 51; Glucose 104 mg/dL (70-105); Potassium 3.8 mmol/L (3.5-5.1); Sodium 143 mmol/L (136-145)
[2018-09-23 08:17] LABS: Hemoglobin 11.1 g/dL (12.0-16.0); Mean Corpuscular HGB CONC 33.2 g/dL (32.0-36.0); Mean Corpuscular Hemoglobin 27.9 pg (27.0-31.0); Mean Corpuscular Volume 84.1 fL (78.0-98.0); Mean Platelet Volume 9.6 fL (7.4-10.4); Platelet Count 257 thou/uL (130-400); RBC Distribution Width 16.1 % (11.5-14.5); Red Blood Cell (RBC) Count 3.98 mill/uL (4.20-5.40); White Blood Cell (WBC) Count 19.7 thou/uL (4.8-10.8)
[2018-09-23] MEDS: Enoxaparin Sodium 40 MG/0.4 ML SYRINGE SC SCH (08:19)
[2018-09-23] MEDS: Pantoprazole 40 MG VIAL IVP SCH (08:23)
[2018-09-23] MEDS: Propofol BOLUS 1,000 MG/100 ML VIAL IV PRN ×4 (09:05→13:20)
[2018-09-23 09:09] LABS: Band 1 % (5-11); Eosinophils 2 % (0-10); Lymphocytes 1 % (21-51); MDiff Complete? YES; Monocytes 10 % (0-10); Neutrophil 83 % (42-75); Platelet Morphology Comment Appears Adequate; Polychromasia SLIGHT = 2-3 cells (100X) (0-2/hpf); Reactive Lymphocytes 3 % (0-10)
--- NOTE | 2018-09-23 09:52 | PRG ---
DATE OF SERVICE: 09/23/2018 This is a 35 minutes of critical care time. SUBJECTIVE: The patient remains intubated on mechanical ventilation. OBJECTIVE: VITAL SIGNS: On physical exam; temperature is 98.4, pulse 106, and blood pressure 195/122. She has now been restarted on the nicardipine drip. Total intake for the last 24 hours was 2764 and output 1865. She receives most of her volume to lactated Ringer's. HEENT: She will open her eyes. She will follow some commands. NECK: No JVD. LUNGS: Diminished breath sounds right base. Left side, clear. CARDIAC: S1 and S2. Tachycardic. ABDOMEN: Soft, nontender, and nondistended. EXTREMITIES: Edematous throughout. LABORATORY DATA: A pH of 7.38, pCO2 of 46, pO2 of 67, that is on bilevel high pressure 25 and low pressure 12, FiO2 of 40%. White blood cell count 19.7, hematocrit 33.5, and platelet count 257. Sodium 143, potassium 3.8, chloride 108, CO2 of 25, BUN 29, creatinine 1.4, and glucose 104. Chest x-ray showed right lower lobe atelectasis. ASSESSMENT: 1. Acute respiratory failure requiring mechanical ventilation. 2. Recurrent right lung mucous plugging. 3. Hypertensive encephalopathy. 4. Hypertensive nephrosclerosis. 5. Status post emergent section for distress. 6. Posterior reversible encephalopathy syndrome. 7. Drug abuse. PLAN: The patient is not weanable at this time. She has been started on antibiotics for the recurrent pneumonitis/mucous plugging. She will be on nicardipine for blood pressure control, but I have instructed the nurse not to lower pressure below 160 as she develops issues with low urine output once she becomes hypotensive. Job ID: [id number]
--- NOTE | 2018-09-23 10:14 | OP ---
DATE OF PROCEDURE: 09/23/2018 PROCEDURE PERFORMED: Fiberoptic bronchoscopy. PREOPERATIVE DIAGNOSIS: Right lung mucus plugging. POSTOPERATIVE DIAGNOSIS: Right lung mucus plugging. ANESTHESIA: The patient was on propofol drip through mechanical ventilation moving to the procedure. INDICATION FOR PROCEDURE: The patient has a collapse of the right lower lobe in her x-ray again today. DESCRIPTION OF PROCEDURE: An Ambu disposable bronchoscope was placed down the patient's endotracheal tube through an adapter. There was copious mucus plugging present in the right mainstem bronchus extending into the right lower lobe. This was lavaged with saline and suctioned. Left lung was clear. The patient tolerated the procedure well. Job ID: [id number]
--- NOTE | 2018-09-23 12:58 | RAD ---
PORTABLE CHEST: DATE: 09/23/2018. PROVIDED CLINICAL HISTORY: Respiratory insufficiency. FINDINGS: Comparison 09/22/2018. Significant interval change with respiratory to the prior examination is not a pparent. IMPRESSION: As above. POS: [facility]
[2018-09-23] MEDS: Lorazepam 2 MG/ML VIAL SLOW IVP PRN (16:57)
[2018-09-24] MEDS: Propofol 1,000 MG/100 ML VIAL IV PRN ×4 (00:39→11:59)
[2018-09-24] MEDS: Piperacillin/Tazobactam 3.375 GM in Sodium Chloride 0.9% 100 ML IVPB SCH ×4 (03:53→22:17)
[2018-09-24] MEDS: hydrALAZINE 20 MG/ML VIAL SLOW IVP PRN ×5 (03:54→16:34)
[2018-09-24 05:49] LABS: Anion Gap 17 mmol/L (10-20); BUN (Urea Nitrogen) 29 mg/dL (7.0-18.7); Calc. Creatinine Clearance 117 mL/min (70-130); Calcium 7.9 mg/dL (7.8-10.44); Carbon Dioxide 21 mmol/L (22-29); Chloride 113 mmol/L (98-107); Estimated GFR-MDRD 49; Glucose 113 mg/dL (70-105); Potassium 3.5 mmol/L (3.5-5.1); Sodium 147 mmol/L (136-145)
[2018-09-24 06:05] LABS: Band 13 % (5-11); Eosinophils 1 % (0-10); Hemoglobin 6.9 g/dL (12.0-16.0); Lymphocytes 12 % (21-51); MDiff Complete? YES; Mean Corpuscular Hemoglobin 27.2 pg (27.0-31.0); Mean Corpuscular Volume 85.2 fL (78.0-98.0); Mean Platelet Volume 8.8 fL (7.4-10.4); Monocytes 5 % (0-10); Neutrophil 69 % (42-75); Platelet Count 331 thou/uL (130-400); Platelet Morphology Comment Appears Adequate; RBC Distribution Width 15.9 % (11.5-14.5); Red Blood Cell (RBC) Count 2.55 mill/uL (4.20-5.40); White Blood Cell (WBC) Count 24.8 thou/uL (4.8-10.8)
--- NOTE | 2018-09-24 06:59 | PDOC.PP ---
Post Progress Note Post Day #: 4 Subjective: PT is a 33yo female intubated. Nurse reports minimal vaginal bleeding. Pt on zosyn for pneumonitis. PO intake tolerated: no Vital Signs (12 hours) Temp Pulse Resp Pulse Ox 09/24/18 06:00 19 09/24/18 04:00 100.0 F H 18 09/24/18 02:59 69 09/24/18 02:00 19 09/24/18 00:00 100.1 F H 19 09/23/18 22:00 18 09/23/18 21:52 76 09/23/18 20:00 100.1 F H 18 09/23/18 19:43 100 Weight Admit Weight 293 lb 3.437 oz Weight 299 lb 13.259 oz Most Recent Monitor Data Heart Rate from ECG 67 NIBP 150/95 NIBP BP-Mean 113 Respiration from ECG 16 SpO2 100 - Physical Examination General: NAD Fundus firm & at: umbilicus Skin: CS incision dry & intact, no rash Result Diagrams: 09/24/18 04:57 09/24/18 04:57 Additional Labs: Post Labs Blood Type A POSITIVE 09/20/18 10:36 Hep Bs Antigen Non-Reactive S/CO (NonReactive) 09/20/18 10:36 (1) Anemia Code(s): D64.9 - ANEMIA, UNSPECIFIED Status: Acute Qualifiers: Anemia type: unspecified type Qualified Code(s): D64.9 - Anemia, unspecified Comment: Pt has qbl 522cc with starting hgb at 14 post op hgb 11 with a 4pt drop since yesterday. fluid status is positive but the rest of her lab not consistent with dilutional effect. OG tube had been putting out some blood but can't account for this drop. vital signs otherwise unchanged. still requiring hydralizine prn. Pt started yesterday on lovenox for dvt prophylaxis. Will hold for now. will repeat cbc to look evidence of error. Pt may need blood products. Will pass on f/u to Dr Mary OTTO (2) Cocaine use complicating in third trimester Code(s): O99.323 - DRUG USE COMPLICATING , THIRD TRIMESTER; F14.90 - COCAINE USE, UNSPECIFIED, UNCOMPLICATED Status: Acute (3) Delivery by emergency section Code(s): O82 - ENCOUNTER FOR DELIVERY WITHOUT INDICATION Status: Acute Comment: routine care (4) Hypertensive emergency Code(s): I16.1 - HYPERTENSIVE EMERGENCY Status: Acute Comment: on hydralizine prn managed by cc . thanks (5) Non-reassuring heart rate, delivered, current hospitalization Code(s): O76 - ABNLT IN HEART RATE AND RHYTHM COMP LABOR AND DELIVERY Status: Acute
[2018-09-24 07:08] LABS: Actual Bicarbonate (HCO3a) 25.7 mEq/L (22-28); Base Excess (BEa) 2.8 mEq/L (-2.0 to +3.0); CO2 Tension 33.3 mmHg (35.0-45.0); Calcium, Ionized 1.07 mmol/L (1.12-1.30); Carboxyhemoglobin (COHb) 0.2 gm% (0.0-3.0); Hemoglobin (Hb) 10.3 g/dL (12.0-16.0); O2 Tension (PaO2) 130.4 mmHg (80.0-100.0); Potassium - ABG Lab 3.19 mmol/L (3.70-5.30); pH, Arterial 7.51 (7.35-7.45)
[2018-09-24 07:31] LABS: ALV-art Gradient 113.175 (0-20); Puncture Site RRA
[2018-09-24] MEDS: Pantoprazole 40 MG VIAL IVP SCH (08:02)
[2018-09-24 08:53] LABS: Hemoglobin 9.9 g/dL (12.0-16.0); Mean Corpuscular HGB CONC 33.4 g/dL (32.0-36.0); Mean Corpuscular Hemoglobin 28.2 pg (27.0-31.0); Mean Corpuscular Volume 84.5 fL (78.0-98.0); Mean Platelet Volume 8.6 fL (7.4-10.4); Platelet Count 259 thou/uL (130-400); RBC Distribution Width 16.3 % (11.5-14.5); Red Blood Cell (RBC) Count 3.49 mill/uL (4.20-5.40); White Blood Cell (WBC) Count 18.8 thou/uL (4.8-10.8)
--- NOTE | 2018-09-24 09:18 | RAD ---
SINGLE VIEW OF THE CHEST: COMPARISON: 09/23/2018. HISTORY: Pneumonia. FINDINGS: A single view of the chest shows a normal size cardiomediastinal silhouette. The endotracheal tube a nd NG tube are unchanged in position. There is a moderate right pleural effusion with adjacent atele ctasis. IMPRESSION: Stable exam. POS: [facility]
[2018-09-24 09:44] LABS: ALT (SGPT) 16 U/L (8-55); AST (SGOT) 21 U/L (5-34); Albumin 2.3 g/dL (3.5-5.0); Alkaline Phosphatase 106 U/L (40-150); Bilirubin, Direct 0.1 mg/dL (0.1-0.3); Bilirubin, Total 0.2 mg/dL (0.2-1.2); Protein, Total 5.5 g/dL (6.0-8.3)
--- NOTE | 2018-09-24 16:13 | PRG ---
DATE OF SERVICE: 09/24/2018 SUBJECTIVE: Sigrid Hall was able to follow commands and interact. She passed the leak test. She passed the spontaneous breathing trial. She is still having intermittent elevations of her blood pressure. OBJECTIVE: LUNGS: Clear. HEART: Regular rhythm. ABDOMEN: Soft. EXTREMITIES: Without asymmetry. LABORATORY DATA: White count 18.8, hemoglobin 9.9, and platelets 259,000. Sodium 147, potassium 3.5, chloride 113, bicarb 21, BUN 29, and creatinine 1.5. IMPRESSION AND PLAN: 1. Posterior reversible encephalopathy syndrome, resolving/hypertensive encephalopathy. 2. Chronic kidney disease, acute decompensation. 3. Proteinuria, likely related to her . 4. Hypertension, marginally controlled. 5. Right lung mucous plugging, not recurrent today by exam and radiograph. 6. Status post emergent for distress. 7. Street drug use prior to admission (PCP and cocaine). She will remain in the ICU mainly for blood pressure control for now. Hopefully by tomorrow, she will be stable to consider for transfer out of the critical care unit. Job ID: [id number]
[2018-09-24] MEDS: niCARdipine HCl 50 MG in Sodium Chloride 0.9% 250 ML 230 ML IVPB SCH ×3 (17:40→22:00)
[2018-09-25] MEDS: niCARdipine HCl 50 MG in Sodium Chloride 0.9% 250 ML 230 ML IVPB SCH ×4 (00:25→15:03)
[2018-09-25] MEDS: Piperacillin/Tazobactam 3.375 GM in Sodium Chloride 0.9% 100 ML IVPB SCH (04:06)
[2018-09-25 06:37] LABS: Anion Gap 14 mmol/L (10-20); BUN (Urea Nitrogen) 15 mg/dL (7.0-18.7); Calc. Creatinine Clearance 181 mL/min (70-130); Calcium 8.7 mg/dL (7.8-10.44); Carbon Dioxide 25 mmol/L (22-29); Chloride 108 mmol/L (98-107); Estimated GFR-MDRD 84; Glucose 103 mg/dL (70-105); Sodium 144 mmol/L (136-145)
[2018-09-25 06:42] LABS: Potassium 2.9 mmol/L (3.5-5.1)
[2018-09-25 06:45] LABS: Band 1 % (5-11); Hemoglobin 11.2 g/dL (12.0-16.0); Lymphocytes 6 % (21-51); MDiff Complete? YES; Mean Corpuscular HGB CONC 31.4 g/dL (32.0-36.0); Mean Corpuscular Hemoglobin 27.2 pg (27.0-31.0); Mean Corpuscular Volume 86.6 fL (78.0-98.0); Monocytes 3 % (0-10); Neutrophil 90 % (42-75); Nucleated RBC 1 % (0); Platelet Count 317 thou/uL (130-400); Platelet Morphology Comment Appears Adequate; RBC Distribution Width 16.1 % (11.5-14.5); RBC Morphology Normal; Red Blood Cell (RBC) Count 4.12 mill/uL (4.20-5.40); White Blood Cell (WBC) Count 19.3 thou/uL (4.8-10.8)
--- NOTE | 2018-09-25 07:41 | PRG ---
DATE OF SERVICE: 09/25/2018 TIME OF SERVICE: 0710. SUBJECTIVE: The patient is awake, alert, and oriented this morning. Blood pressure is 153/94, mean arterial pressure is 113, pulse is 89, respirations 30, O2 saturations were 96%. The patient and I had a discussion about her baby and how it is doing in the nursery as well as her obstetrical history. Her abdomen is soft and nontender without rebound or guarding or distention. Her incision is well healed. She has normal lochia and extremities are nontender. LABORATORY DATA: Hematocrit this morning was 35% with a 19.3 white count, platelet count stable at 317. The patient's base met reveals a low potassium at 2.9, creatinine is improved at 0.94. Urine output increased yesterday from 2000 to 7500 mL consistent with diuresis. IMPRESSION: Status post with severe hypertension, drug use, head injury resolved anemia and pneumonitis, now extubated. PLAN: We will follow the recommendations of Pulmonology regarding continuing antibiotics. The patient is currently on Cardene drip for hypertension and Precedex for withdrawal. We will consult [facility] hospitalist for conversion of these drips to p.o. drugs and management. At this point in time, the patient will likely need antihypertensive therapy upon discharge. The patient will need internal medicine followup for medical condition post discharge. We will check outpatient to Dr. Lisa Garcia, OB hospitalist for the next 24 hour period at 0800 hours today. Job ID: [id number]
[2018-09-25] MEDS: Potassium Chloride 20 MEQ TAB PO SCH ×2 (08:33→12:22)
[2018-09-25] MEDS: Pantoprazole 40 MG VIAL IVP SCH (08:33)
--- NOTE | 2018-09-25 08:44 | RAD ---
AP CHEST: HISTORY: Pneumonia followup. COMPARISON: 09/24/2018 FINDINGS: Infiltrate in the right mid and lower lung is again seen, possibly improved from yesterday, with less density. There is patchy infiltrate noted in the left lower lobe. IMPRESSION: Bilateral infiltrates, more prominent in the right mid and lower lung, although the right lung infilt rates appear improved when compared to yesterday. POS: [facility]
--- NOTE | 2018-09-25 10:25 | HP ---
PRIMARY CARE PROVIDER: None. HISTORY OF PRESENT ILLNESS: The patient states she fell at home and has no memory until she woke up yesterday. She was admitted to the hospital on 09/20/2018. She was found to have a drug screen positive for PCP and cocaine. The patient was , on care. She was noted to have markedly elevated blood pressure. She underwent by Dr. Lisa Garcia. Blood pressure at that time was 200 systolic. At that point, she was transferred to the intensive care unit. Brain CT which was done, found to have a normal CT. MRI was obtained, findings suggestive of posterior reversible encephalopathy syndrome, subtle focus of hemorrhage in left frontal area. Dr. Aly Balderas was consulted. At that point, her pH was 7.33, CO2 of 35, O2 of 69. Elevated white count of 17.7, hemoglobin 14, and platelets 300. Creatinine is 1.47. Diagnosis was encephalopathy, hypertension related to . She was on a mechanical ventilator. She was treated with Cardene for her blood pressure. On 09/22/2018, she had a bronchoscopy, right lower lobe mucous plugging. Echocardiogram on 09/22/2018 revealed 60% to 65% EF. On 09/23/2018 cxr revealed repeat collapse of right lower lobe, copious mucus plugging. The patient was extubated on 09/24/2018. She states that her first memory is of same. Today, she has no complaints. PAST MEDICAL HISTORY: Negative for chronic disease. MEDICATIONS: Prior to admission, none. ALLERGIES: NONE. PAST SURGICAL HISTORY: None. FAMILY HISTORY: Brothers have hypertension. SOCIAL HISTORY: Single. Smokes a few cigarettes. Admits to cocaine and PCP. Denies alcohol. REVIEW OF SYSTEMS: GENERAL: No headaches, dizziness, or fainting. HEENT: Eyes, no double vision, blurred vision, flashing lights. Ear, nose, and throat; no ear pain or drainage. No nasal bleeding. No trouble swallowing. CARDIAC: No chest pain, orthopnea, or paroxysmal nocturnal dyspnea. RESPIRATORY: No cough, wheezing, or asthma. GASTROINTESTINAL: No nausea, vomiting, diarrhea, or constipation. GENITOURINARY: No hematuria or dysuria. MUSCULOSKELETAL: No pain or swelling in her arms or legs. NEUROLOGIC: No history of stroke, seizures, or focal weakness. PSYCHIATRIC: No history of anxiety or depression. SKIN: No bruising, bleeding, or rash. HEME/LYMPH: No tender or swollen lymph nodes in the axilla, inguinal, or cervical area. PHYSICAL EXAMINATION: GENERAL: Alert and oriented. VITAL SIGNS: Blood pressure 159/94, pulse 115, respirations 19 to 29, and O2 saturation high 90s on room air. HEAD, EYES, EARS, NOSE, AND THROAT: Revealed pupils are equal, round, and reactive to light. Extraocular movements are intact. Sclerae are white. Tympanic membranes are clear. Nose clear. Oral mucous membranes are wet. Dental hygiene is fair. NECK: Supple without jugular venous distention, adenopathy, or thyromegaly. CHEST: Clear to auscultation and percussion. HEART: Regular rate and rhythm. First and second heart sounds are clear. There are no murmurs. No gallop. ABDOMEN: Soft. Bowel sounds are normal. There is no hepatosplenomegaly. No mass. No rebound. No bruits. EXTREMITIES: Reveal no cyanosis, clubbing, or edema. PULSES: Carotid, radial, femoral, and dorsalis pedis pulses intact. SKIN: Warm and dry without bruises or rash. HEME/LYMPH: No tender or swollen lymph nodes in the axilla, inguinal, or cervical area. No petechial hemorrhages in the mucous membranes or nail beds. NEUROLOGIC: Cranial nerves 2 through 12 are intact. Deep tendon reflexes symmetric. LABORATORY DATA: White count 19.9, hemoglobin 11.2, and platelet count 317,000. Most recent blood gas; pH 7.51, pCO2 33, pO2 130 on 09/24/2018. Chemistries; sodium 144, potassium 2.9, chloride 108, and CO2 of 25. BUN and creatinine normal. Hepatitis B syphilis titer is nonreactive. Toxicology positive for PCP and cocaine in the urine. DIAGNOSES: 1. Recent emergent . 2. Encephalopathy, resolved. 3. Hypertensive emergency. 4. Polysubstance abuse. 5. Respiratory failure, resolved. 6. Hypokalemia. PLAN: Agree with starting amlodipine. We will start p.o. potassium. We will follow with you. Job ID: [id number] MTDD
[2018-09-25] MEDS ORDERED: Amoxicillin/Potassium Clav 875 MG TAB PO SCH (10:30)
[2018-09-25] MEDS ORDERED: Amlodipine 10 MG TAB PO SCH (10:30)
[2018-09-25] MEDS: Potassium Chloride 20 MEQ in Premix Bag 1 BAG IVPB SCH ×2 (10:31→13:06)
[2018-09-25] MEDS: hydrALAZINE 20 MG/ML VIAL SLOW IVP PRN ×2 (12:23→14:38)
[2018-09-25] MEDS: Acetaminophen 500 MG TAB PO PRN (15:09)
[2018-09-25] MEDS ORDERED: Metoprolol Tartrate 25 MG TAB PO SCH (15:30)
[2018-09-25] MEDS: Ondansetron PF 4 MG/2 ML Vial IVP PRN (15:38)
[2018-09-25] MEDS: Labetalol HCl 100 MG/20 ML VIAL SLOW IVP PRN (17:48)
--- NOTE | 2018-09-25 19:49 | PRG ---
DATE OF SERVICE: 09/25/2018 SUBJECTIVE: Sigrid Hall still had intermittent rise in her blood pressure. Her blood pressure medications have been adjusted, hoping to get her off Cardene drip. I added labetalol late this afternoon to see if this works better as a p.r.n. drug. Hydralazine did not seem to be helping much. OBJECTIVE: VITAL SIGNS: Blood pressure this evening is 149/99, heart rate is 103, and respiratory rate is 19. LUNGS: Clear today. HEART: Regular rhythm. ABDOMEN: Soft and nontender. EXTREMITIES: Without edema. NEURO: Nonfocal. I think she is back to her baseline neurologically. I went over her presenting illness and all the events surrounding this hospitalization. Also discussed the drug use in fact that she almost lost her child. There are no new complaints from her. LABORATORY DATA: White count today is 19.3, hemoglobin 11.2, platelets 317,000. Sodium 144, potassium 2.9, chloride 108, bicarb 25, BUN 15, and creatinine 0.94. She grew H flu out of her bronchial lavage. IMPRESSION: 1. Preeclampsia, hypertensive encephalopathy and posterior reversible encephalopathy syndrome. 2. Neurological issues are resolved. 3. Poorly controlled hypertension as an outpatient. 4. 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 5. Drug use prior to admission while . 6. Status post emergent for distress. PLAN: Continue adjustments of her blood pressure medicines. Appreciate Dr. Lucia input. CRITICAL CARE TIME: 30 minutes. Job ID: [id number]
[2018-09-25] MEDS: Metoprolol Tartrate 25 MG TAB PO SCH (20:08)
[2018-09-25] MEDS: Amoxicillin/Potassium Clav 875 MG TAB PO SCH (20:08)
[2018-09-26] MEDS: Labetalol HCl 100 MG/20 ML VIAL SLOW IVP PRN ×3 (00:14→17:49)
[2018-09-26] MEDS: Ondansetron PF 4 MG/2 ML Vial IVP PRN ×3 (01:04→14:13)
[2018-09-26] MEDS: niCARdipine HCl 50 MG in Sodium Chloride 0.9% 250 ML 230 ML IVPB SCH ×3 (01:34→11:22)
[2018-09-26] MEDS: Promethazine HCl 25 MG/ML VIAL IM PRN ×2 (02:26→08:55)
[2018-09-26 05:59] LABS: Anion Gap 12 mmol/L (10-20); BUN (Urea Nitrogen) 12 mg/dL (7.0-18.7); Calc. Creatinine Clearance 196 mL/min (70-130); Calcium 8.8 mg/dL (7.8-10.44); Carbon Dioxide 25 mmol/L (22-29); Chloride 107 mmol/L (98-107); Estimated GFR-MDRD Greater than 90; Glucose 108 mg/dL (70-105); Potassium 3.4 mmol/L (3.5-5.1); Sodium 141 mmol/L (136-145)
[2018-09-26 06:19] LABS: Band 3 % (5-11); Eosinophils 1 % (0-10); Hemoglobin 11.9 g/dL (12.0-16.0); Lymphocytes 12 % (21-51); MDiff Complete? YES; Mean Corpuscular HGB CONC 32.4 g/dL (32.0-36.0); Mean Corpuscular Hemoglobin 28.2 pg (27.0-31.0); Mean Corpuscular Volume 87.2 fL (78.0-98.0); Mean Platelet Volume 8.5 fL (7.4-10.4); Metamyelocyte 2 % (0-0); Monocytes 3 % (0-10); Myelocyte 3 % (0-0); Neutrophil 76 % (42-75); Platelet Count 335 thou/uL (130-400); Platelet Morphology Comment Appears Adequate; RBC Distribution Width 16.1 % (11.5-14.5); Red Blood Cell (RBC) Count 4.21 mill/uL (4.20-5.40); White Blood Cell (WBC) Count 16.7 thou/uL (4.8-10.8)
[2018-09-26] MEDS: Metoprolol Tartrate 25 MG TAB PO SCH (07:56)
--- NOTE | 2018-09-26 07:57 | PDOC.PP ---
Post Progress Note Post Day #: 5 Subjective: Doing well, has no complaints this morning. Pain well controlled. Vital Signs (12 hours) Temp Pulse BP 09/26/18 00:14 111 H 183/113 H 09/26/18 00:00 98.4 F 09/25/18 20:53 98 172/111 H 09/25/18 20:00 98.2 F Weight Admit Weight 293 lb 3.437 oz Weight 288 lb 2.307 oz Most Recent Monitor Data Heart Rate from ECG 108 NIBP 158/102 NIBP BP-Mean 120 Respiration from ECG 19 SpO2 97 - Physical Examination General: NAD Respiratory: non-labored breathing Abdominal: lochia (normal), no distention, appropriately TTP Skin: CS incision dry & intact, no rash Neurological: no gross focal deficits Psychiatric: A&Ox3, normal affect Result Diagrams: 09/26/18 05:30 09/26/18 05:30 Additional Labs: Post Labs Blood Type A POSITIVE 09/20/18 10:36 Hep Bs Antigen Non-Reactive S/CO (NonReactive) 09/20/18 10:36 (1) Cocaine use complicating in third trimester Code(s): O99.323 - DRUG USE COMPLICATING , THIRD TRIMESTER; F14.90 - COCAINE USE, UNSPECIFIED, UNCOMPLICATED Status: Acute (2) Non-reassuring heart rate, delivered, current hospitalization Code(s): O76 - ABNLT IN HEART RATE AND RHYTHM COMP LABOR AND DELIVERY Status: Acute (3) Delivery by emergency section Code(s): O82 - ENCOUNTER FOR DELIVERY WITHOUT INDICATION Status: Acute Comment: routine care (4) Hypertensive emergency Code(s): I16.1 - HYPERTENSIVE EMERGENCY Status: Acute Comment: on hydralizine prn managed by nick steward. thanks - Assessment/Plan Patient has no memory of anything prior to extubation. Baby signed over to state yesterday. Patient with no other questions this morning. Sound to manage medications when transferred to floor. Appreciate their input.
[2018-09-26] MEDS: Amoxicillin/Potassium Clav 875 MG TAB PO SCH ×2 (08:04→21:08)
[2018-09-26] MEDS: Pantoprazole 40 MG VIAL IVP SCH (08:05)
--- NOTE | 2018-09-26 08:43 | RAD ---
CHEST ONE VIEW: INDICATIONS: History of pneumonia. COMPARISON: 09/25/2018 FINDINGS: Bilateral air space opacities persist. Mild cardiomegaly is stable. No pleural effusion or pneumoth orax is evident. No acute osseous abnormality is noted. IMPRESSION: Stable examination. POS: [facility]
[2018-09-26] MEDS ORDERED: Amlodipine 10 MG TAB PO SCH (09:00)
[2018-09-26] MEDS ORDERED: Metoprolol Tartrate 25 MG TAB PO SCH (09:27)
[2018-09-26] MEDS ORDERED: Metoprolol Tartrate 50 MG TAB PO SCH ×2 (10:00→21:00)
[2018-09-26] MEDS ORDERED: hydrALAZINE 20 MG/ML VIAL SLOW IVP PRN (12:05)
[2018-09-26] MEDS: Labetalol HCl 200 MG in Dextrose 5% in Water 160 ML IVPB SCH ×3 (12:20→21:18)
[2018-09-26] MEDS: Enalaprilat Dihydrate 1.25 MG/ML VIAL SLOW IVP SCH ×2 (12:23→18:28)
[2018-09-26] MEDS ORDERED: hydrALAZINE 20 MG/ML VIAL SLOW IVP SCH (14:00)
[2018-09-26] MEDS: hydrALAZINE 25 MG TAB PO SCH ×2 (14:13→21:08)
[2018-09-26] MEDS: cloNIDine 0.2 MG TAB PO SCH ×2 (14:13→21:08)
[2018-09-26] MEDS ORDERED: hydrALAZINE 25 MG TAB PO SCH (14:15)
[2018-09-26] MEDS ORDERED: Ondansetron ODT 8 MG TAB PO PRN (14:17)
[2018-09-26] MEDS ORDERED: cloNIDine 0.2 MG TAB PO SCH (15:00)
--- NOTE | 2018-09-26 15:11 | PDOC.PN ---
- Subjective Encounter Start Date: 09/26/18 Encounter Start Time: 13:15 Subjective: f/u for HTN urgency/emergency s/p emergent due to non- -: reassuring heart tones. Remains on multiple antihypertensives -: with marginal control. + N/V earlier. Hx of prior PIH - Objective MAR Reviewed: Yes Vital Signs & Weight: Vital Signs (12 hours) Temp 09/26/18 13:00 99.9 F H 09/26/18 08:00 97.1 F L Weight Admit Weight 293 lb 3.437 oz Weight 288 lb 2.307 oz Most Recent Monitor Data Heart Rate from ECG 85 NIBP 151/85 NIBP BP-Mean 107 Respiration from ECG 25 SpO2 98 I&O: 09/25/18 09/26/18 09/27/18 06:59 06:59 06:59 Intake Total 3874 6903 300 Output Total 7599 5440 1720 Balance -3646 1463 -8690 Result Diagrams: 09/26/18 05:30 09/26/18 05:30 Additional Labs: Microbiology 09/22/18 09:21 Bronchial Alveolar Lavage Bronchoalveolar Lavage Cult, Quant - Final Haemophilus influenzae Laboratory Tests 09/20/18 09/20/18 09/20/18 09:27 10:36 10:36 WBC Hgb Potassium Ur Phencyclidine Scrn Detected H U Cocaine Metab Screen Detected H Syphilis IgG/IgM Ab Nonreactive Hep Bs Antigen Non-Reactive HIV 1&2 Antigen & Ab Non-Reactive 09/21/18 09/23/18 09/24/18 08:59 07:20 04:57 WBC 19.9 H 19.7 H 24.8 H Hgb 6.9 L Potassium Ur Phencyclidine Scrn U Cocaine Metab Screen Syphilis IgG/IgM Ab Hep Bs Antigen HIV 1&2 Antigen & Ab 09/24/18 09/25/18 09/25/18 08:35 04:37 04:37 WBC 18.8 H 19.3 H Hgb 9.9 L 11.2 L Potassium 2.9 L* Ur Phencyclidine Scrn U Cocaine Metab Screen Syphilis IgG/IgM Ab Hep Bs Antigen HIV 1&2 Antigen & Ab Radiology Reviewed by me: Yes (PCXR - prominent bronchoalveolar markings) EKG Reviewed by me: Yes (Tele - SR) Phys Exam - Physical Examination Constitutional: NAD HEENT: PERRLA, sclera anicteric, oral pharynx no lesions Neck: no nodes, no JVD, supple, full ROM Respiratory: no wheezing, no rales, no rhonchi, clear to auscultation bilateral Cardiovascular: RRR, no significant murmur, no rub, gallop obese surgical incision intact Gastrointestinal: soft, non-tender, no distention, positive bowel sounds Musculoskeletal: no edema, pulses present Neurological: normal sensation, moves all 4 limbs Psychiatric: A&O x 3 Skin: normal turgor, cap refill <2 seconds Dx/Plan (1) Hypertensive emergency Code(s): I16.1 - HYPERTENSIVE EMERGENCY Status: Acute Comment: Continues on multiple antihypertensives, add Hydralazine 50mg TID, wean off IV BP meds when tolerating po (2) Polysubstance abuse Code(s): F19.10 - OTHER PSYCHOACTIVE SUBSTANCE ABUSE, UNCOMPLICATED Status: Acute Comment: Cessation and detox options, consider MR evaluation (3) Toxic metabolic encephalopathy Code(s): G92 - TOXIC ENCEPHALOPATHY Status: Acute Comment: Resolved with supportive mgmt (4) Acute blood loss anemia Code(s): D62 - ACUTE POSTHEMORRHAGIC ANEMIA Status: Acute Comment: Secondary to , stable currently, serial H/H - Plan continue antibiotics, PT/OT, 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
--- NOTE | 2018-09-26 16:12 | ULT ---
OBSTETRICAL ULTRASOUND: INDICATIONS: History of pre-eclampsia and history of fall. Positive for PCP and cocaine. FINDINGS: There is a single live intrauterine gestation, in vertex presentation. Cardiac activity is noted at 111 beats per minute. The amniotic fluid level appears low, qualitatively. The JAYDA measured 3.9 cm. This is well below the 2.5th percentile for gestational age. This and advanced gestational age shaffer its the survey. The cervical length was 3.6 cm. The biparietal diameter measured 7.66 cm, giving an estimated gestational age of 30 weeks 5 days. The head circumference measured 28.71 cm, giving a gestational age of 31 weeks 4 days. The abdominal circumference measured 26.35 cm, giving a gestational age of 30 weeks 3 days. The femoral length measured 5.8 cm, giving a gestational age of 30 weeks 5 days. Estimated weight is 1615 g, plus or minus 239 g. The average gestational age, based on biometrics, is 30 weeks 6 days. Estimated due date is . On the biophysical profile, there was 0/2 for tone, 0/2 for breathing, 0/2 for move ment, and 1/2 for amniotic fluid index. IMPRESSION: 1. Biophysical profile of 07/10. The examination was verbally reported to the obstetrical/gynecologic al nurse, Sarah, at the time of this examination, by the geospatial technician. 2. Oligohydramnios. 3. Advanced gestational age and limited amniotic fluid volume limits survey. 4. The fetus is in a vertex presentation with an anterior placenta without overt evidence of previa. The cervical length is 3.6 cm.
[2018-09-27] MEDS: Enalaprilat Dihydrate 1.25 MG/ML VIAL SLOW IVP SCH ×5 (00:41→23:31)
[2018-09-27 04:47] LABS: #Eosinphils 0.3 thou/uL (0.0-0.7); #Lymphocytes 3.3 thou/uL (1.20-3.40); #Monocytes 1.5 thou/uL (0.11-0.59); #Neutrophils 8.2 thou/uL (1.40-6.50); %Basophils 0.2 % (0.0-1.0); %Eosinophils 2.2 % (0.0-10.0); %Lymphocytes 24.5 % (21.0-51.0); %Monocytes 11.6 % (0.0-10.0); %Neutrophils 61.5 % (42.0-75.0); Hemoglobin 10.3 g/dL (12.0-16.0); Mean Corpuscular HGB CONC 31.9 g/dL (32.0-36.0); Mean Corpuscular Hemoglobin 27.9 pg (27.0-31.0); Mean Corpuscular Volume 87.5 fL (78.0-98.0); Mean Platelet Volume 8.6 fL (7.4-10.4); Platelet Count 313 thou/uL (130-400); Red Blood Cell (RBC) Count 3.69 mill/uL (4.20-5.40); White Blood Cell (WBC) Count 13.4 thou/uL (4.8-10.8)
[2018-09-27 05:08] LABS: Anion Gap 12 mmol/L (10-20); BUN (Urea Nitrogen) 15 mg/dL (7.0-18.7); Calc. Creatinine Clearance 162 mL/min (70-130); Calcium 8.2 mg/dL (7.8-10.44); Carbon Dioxide 25 mmol/L (22-29); Chloride 107 mmol/L (98-107); Estimated GFR-MDRD 75; Glucose 92 mg/dL (70-105); Magnesium 1.6 mg/dL (1.6-2.6); Potassium 3.1 mmol/L (3.5-5.1); Sodium 141 mmol/L (136-145)
--- NOTE | 2018-09-27 07:34 | PDOC.EVN ---
Event Note - Event Note Event Note: Pt is POD #4 s/p emergent c/s for nrfht. Pt course complicated by hypertensive episode with PRES requiring IV drip to manage until last night. Pt reports this morning she is feeling well. Pt was asking when she could see the baby. Reports vaginal bleeding slowing, pain is controlled, and urinating spontanously vital signs at time of exam 150'/80s NAD fundus firm incision- soft cdi. POD #4 section- will need 2wk incision check as out patient hypertension (preeclampsia with severe features vs other) on multiple PO meds now managed by Dr Balderas. Now that she is off the drip will probably be transferred to the floor. Medicine team consulted and assisting. renal insuffiency- management per medicine team. anemia - resolved polysubstance abuse. consult case management about placement for drug rehab once out of icu.
--- NOTE | 2018-09-27 07:46 | RAD ---
CHEST 1 VIEW: HISTORY: Pneumonia. COMPARISON: Radiograph prior day. FINDINGS: Mild interval improvement in patchy airspace opacities throughout both lungs. Heart size is similar. No pneumothorax. No significant effusions. IMPRESSION: Mild interval improvement of the patchy airspace infiltrates. POS: HOME
[2018-09-27] MEDS: hydrALAZINE 20 MG/ML VIAL SLOW IVP PRN ×3 (08:39→14:40)
[2018-09-27] MEDS: hydrALAZINE 25 MG TAB PO SCH ×3 (08:51→20:59)
[2018-09-27] MEDS: Amoxicillin/Potassium Clav 875 MG TAB PO SCH ×2 (08:52→20:58)
[2018-09-27] MEDS: Pantoprazole 40 MG VIAL IVP SCH (08:53)
[2018-09-27] MEDS: cloNIDine 0.2 MG TAB PO SCH ×3 (09:01→20:58)
[2018-09-27] MEDS: Labetalol HCl 100 MG/20 ML VIAL SLOW IVP PRN (09:34)
--- NOTE | 2018-09-27 10:09 | PRG ---
DATE OF SERVICE: 09/26/2018 SUBJECTIVE: Sigrid Hall still having elevations of her diastolic and systolic blood pressure. Medication adjustments today. She will be placed on a labetalol drip and started on Catapres. Lungs, heart, and abdomen are otherwise unchanged. There are no new pertinent lab abnormalities. IMPRESSION: 1. Posterior reversible encephalopathy syndrome, resolved clinically. 2. Hypertensive encephalopathy with preeclampsia. 3. Status post emergent for distress. 4. PCP and cocaine use apparently on a daily basis. 5. Pulmonary edema is improving clinically. 6. Probably check another radiograph soon. 7. We will keep her in the ICU till her blood pressure is better controlled. Critical care time 30 minutes. Job ID: [id number]
[2018-09-27] MEDS ORDERED: Metoprolol Tartrate 50 MG TAB PO SCH (11:15)
[2018-09-27] MEDS: Acetaminophen 500 MG TAB PO PRN (11:38)
--- NOTE | 2018-09-27 11:42 | PDOC.PN ---
- Subjective Encounter Start Date: 09/27/18 Encounter Start Time: 11:30 Subjective: f/u for HTN emergency s/p . Overall BP trend improved but labile -: Feels better today. No emesis. +BM - Objective MAR Reviewed: Yes Vital Signs & Weight: Vital Signs (12 hours) Temp Pulse BP Pulse Ox 09/27/18 11:00 98.3 F 09/27/18 10:32 85 167/97 H 09/27/18 09:34 167/97 H 09/27/18 09:01 167/97 H 09/27/18 08:51 85 165/103 H 09/27/18 08:39 79 178/109 H 09/27/18 07:22 98 09/27/18 07:00 98.1 F 09/27/18 06:07 166/98 H 09/27/18 04:00 98.7 F 09/27/18 00:41 141/86 H 09/27/18 00:00 98.9 F Weight Admit Weight 293 lb 3.437 oz Weight 287 lb 4.197 oz Most Recent Monitor Data Heart Rate from ECG 88 NIBP 130/93 NIBP BP-Mean 105 Respiration from ECG 18 SpO2 100 I&O: 09/26/18 09/27/18 09/28/18 06:59 06:59 06:59 Intake Total 6903 1595 495 Output Total 5416 3105 715 Balance 4873 -1510 -220 Result Diagrams: 09/27/18 04:13 09/27/18 04:13 Additional Labs: Microbiology 09/22/18 09:21 Bronchial Alveolar Lavage Bronchoalveolar Lavage Cult, Quant - Final Haemophilus influenzae Laboratory Tests 09/20/18 09/20/18 09/20/18 09:27 10:36 10:36 WBC Hgb Potassium Ur Phencyclidine Scrn Detected H U Cocaine Metab Screen Detected H Syphilis IgG/IgM Ab Nonreactive Hep Bs Antigen Non-Reactive HIV 1&2 Antigen & Ab Non-Reactive 09/21/18 09/23/18 09/24/18 08:59 07:20 04:57 WBC 19.9 H 19.7 H 24.8 H Hgb 6.9 L Potassium Ur Phencyclidine Scrn U Cocaine Metab Screen Syphilis IgG/IgM Ab Hep Bs Antigen HIV 1&2 Antigen & Ab 09/24/18 09/25/18 09/25/18 08:35 04:37 04:37 WBC 18.8 H 19.3 H Hgb 9.9 L 11.2 L Potassium 2.9 L* Ur Phencyclidine Scrn U Cocaine Metab Screen Syphilis IgG/IgM Ab Hep Bs Antigen HIV 1&2 Antigen & Ab 09/26/18 09/26/18 05:30 05:30 WBC 16.7 H Hgb Potassium 3.4 L Ur Phencyclidine Scrn U Cocaine Metab Screen Syphilis IgG/IgM Ab Hep Bs Antigen HIV 1&2 Antigen & Ab Radiology Reviewed by me: Yes (PCXR - improved patchy infiltrates) EKG Reviewed by me: Yes (Tele - SR) Phys Exam - Physical Examination Constitutional: NAD HEENT: PERRLA, sclera anicteric, oral pharynx no lesions Neck: no nodes, no JVD, supple, full ROM Respiratory: no wheezing, no rales, no rhonchi, clear to auscultation bilateral S1, S2 Cardiovascular: RRR, no significant murmur, no rub, gallop obese Gastrointestinal: soft, non-tender, no distention, positive bowel sounds Musculoskeletal: pulses present, edema present Neurological: normal sensation, moves all 4 limbs Psychiatric: A&O x 3 Skin: normal turgor, cap refill <2 seconds Dx/Plan (1) Hypertensive emergency Code(s): I16.1 - HYPERTENSIVE EMERGENCY Status: Acute Comment: Continues on multiple antihypertensives, increase Hydralazine 75mg TID, add Diltiazem 60mg BID, continue Clonidine, Metoprolol (2) Polysubstance abuse Code(s): F19.10 - OTHER PSYCHOACTIVE SUBSTANCE ABUSE, UNCOMPLICATED Status: Acute Comment: Cessation and detox options, consider [facility] evaluation (3) Toxic metabolic encephalopathy Code(s): G92 - TOXIC ENCEPHALOPATHY Status: Acute Comment: Resolved with supportive mgmt (4) Acute blood loss anemia Code(s): D62 - ACUTE POSTHEMORRHAGIC ANEMIA Status: Acute Comment: Secondary to , stable currently, serial H/H - 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
[2018-09-27] MEDS ORDERED: Diltiazem HCl SR 60 mg Capsule PO SCH ×3 (12:00→21:00)
--- NOTE | 2018-09-27 15:56 | PRG ---
DATE OF SERVICE: 09/27/2018 SUBJECTIVE: Sigrid Hall' blood pressure is better controlled this morning. I placed her on labetalol drip last night and started Catapres and her blood pressure improved. She is back on Lopressor now, still on IV Vasotec. When we had her on a Cardene drip plus Norvasc, her blood pressure was not controlled. I am not sure that the Cardizem ordered will work. We will just continue to watch her closely towards finding the right combination of drugs for her. OBJECTIVE: LUNGS: Clear. HEART: Regular rhythm. ABDOMEN: Soft. NEUROLOGIC: She is clear. LABORATORY DATA: White count is 13.4, hemoglobin is 10.3, platelets 313. Creatinine is down to 1.04. Potassium is 3.1. IMPRESSION: 1. Daily drug use with cocaine and PCP. 2. Posterior reversible encephalopathy syndrome. 3. Preeclampsia. 4. Status post emergent for distress. 5. Hypertension, it was poorly controlled as an outpatient. Reasonable goals are blood pressures between 150 and 180 systolic and 90 and 110 diastolic for now gradual adjustment of her medications as an outpatient. If she gets 24 hours with reasonable blood pressure control, then she in my opinion can be discharged home. Job ID: [id number]
[2018-09-27] MEDS: Metoprolol Tartrate 50 MG TAB PO SCH (20:59)
[2018-09-28 04:33] LABS: #Eosinphils 0.5 thou/uL (0.0-0.7); #Lymphocytes 3.5 thou/uL (1.20-3.40); #Monocytes 1.6 thou/uL (0.11-0.59); #Neutrophils 8.5 thou/uL (1.40-6.50); %Eosinophils 3.5 % (0.0-10.0); %Monocytes 11.1 % (0.0-10.0); %Neutrophils 60.4 % (42.0-75.0); Hemoglobin 10.4 g/dL (12.0-16.0); Mean Corpuscular HGB CONC 31.4 g/dL (32.0-36.0); Mean Corpuscular Hemoglobin 27.8 pg (27.0-31.0); Mean Corpuscular Volume 88.5 fL (78.0-98.0); Mean Platelet Volume 8.6 fL (7.4-10.4); Platelet Count 316 thou/uL (130-400); RBC Distribution Width 16.1 % (11.5-14.5); Red Blood Cell (RBC) Count 3.75 mill/uL (4.20-5.40)
[2018-09-28 04:50] LABS: Anion Gap 13 mmol/L (10-20); BUN (Urea Nitrogen) 12 mg/dL (7.0-18.7); Calc. Creatinine Clearance 182 mL/min (70-130); Calcium 8.5 mg/dL (7.8-10.44); Carbon Dioxide 22 mmol/L (22-29); Chloride 106 mmol/L (98-107); Estimated GFR-MDRD 86; Glucose 105 mg/dL (70-105); Potassium 3.3 mmol/L (3.5-5.1); Sodium 138 mmol/L (136-145)
[2018-09-28] MEDS: Enalaprilat Dihydrate 1.25 MG/ML VIAL SLOW IVP SCH ×2 (05:52→11:31)
--- NOTE | 2018-09-28 06:03 | PDOC.EVN ---
Event Note - Event Note Event Note: POD#8 Resting comfortably,no c/o. BP this AM= 164/97. AF Abdomen is soft and NT. Wound is clean. Plan: DC when OK with Medicine. Can f/u for C/S with [facility] but will require Medicine f/u for BP mgmt. as outpatient.
[2018-09-28 07:49] VITALS: TEMP 98.8
[2018-09-28] MEDS: Amoxicillin/Potassium Clav 875 MG TAB PO SCH (08:34)
[2018-09-28] MEDS: Metoprolol Tartrate 50 MG TAB PO SCH (08:34)
[2018-09-28] MEDS: hydrALAZINE 25 MG TAB PO SCH ×2 (08:34→15:57)
[2018-09-28] MEDS: cloNIDine 0.2 MG TAB PO SCH ×2 (08:34→15:57)
[2018-09-28] MEDS: hydrALAZINE 20 MG/ML VIAL SLOW IVP PRN (08:35)
[2018-09-28 14:02] VITALS: BMI 42.6
--- NOTE | 2018-09-28 14:12 | PDOC.PN ---
- Subjective Encounter Start Date: 09/28/18 Encounter Start Time: 14:09 Ms. Hall was seen today in follow-up of Pre-Eclampsia, and hypertensive urgency. She notes a little headache. She appeared comfortable, and was chatting on her cell phone when I entered the room. She says she does not feel ready to go home. She asked me to check her blood pressure again. It was 169/93. - Objective MAR Reviewed: Yes Vital Signs & Weight: Vital Signs (12 hours) Temp Pulse Resp BP BP Pulse Ox 09/28/18 11:29 61 16 167/88 H 100 09/28/18 08:34 99 09/28/18 07:45 98.8 F 67 18 189/107 H 99 09/28/18 05:52 164/97 H 09/28/18 04:00 98.5 F 66 20 164/97 H 99 Weight Admit Weight 293 lb 3.437 oz Weight 281 lb 8.485 oz Most Recent Monitor Data Heart Rate from ECG 70 NIBP 146/107 NIBP BP-Mean 120 Respiration from ECG 17 SpO2 95 I&O: 09/27/18 09/28/18 09/29/18 06:59 06:59 06:59 Intake Total 1595 1625 Output Total 3105 2190 Balance -1510 -565 Result Diagrams: 09/28/18 04:16 09/28/18 04:16 Phys Exam - Physical Examination HEENT: PERRLA Respiratory: no wheezing, no rales, no rhonchi, clear to auscultation bilateral Cardiovascular: RRR, no significant murmur, no rub Gastrointestinal: soft, non-tender, no distention, positive bowel sounds Musculoskeletal: no edema, pulses present Dx/Plan (1) Cocaine use complicating in third trimester Code(s): O99.323 - DRUG USE COMPLICATING , THIRD TRIMESTER; F14.90 - COCAINE USE, UNSPECIFIED, UNCOMPLICATED Status: Acute (2) Delivery by emergency section Code(s): O82 - ENCOUNTER FOR DELIVERY WITHOUT INDICATION Status: Acute Comment: routine care (3) Hypertensive emergency Code(s): I16.1 - HYPERTENSIVE EMERGENCY Status: Acute Comment: Continues on multiple antihypertensives, increase Hydralazine 75mg TID, add Diltiazem 60mg BID, continue Clonidine, Metoprolol (4) Polysubstance abuse Code(s): F19.10 - OTHER PSYCHOACTIVE SUBSTANCE ABUSE, UNCOMPLICATED Status: Acute Comment: Cessation and detox options, consider [facility] evaluation - Plan * Hypertensive Emergency- improved. Her blood pressure us in a reasonable range for discharge * I have re-enforced the need for medical compliance post discharge .
[2018-09-28 16:48] VITALS: BP 169/113
--- NOTE | 2018-09-29 05:34 | DIS ---
DATE OF ADMISSION: 09/20/2018 DATE OF DISCHARGE: 09/28/2018 DISCHARGE DISPOSITION: Home. PRIMARY DISCHARGE DIAGNOSES: 1. Hypertensive crisis. 2. Preeclampsia. 3. Polysubstance abuse. 4. . 5. Medical noncompliance. DISCHARGE MEDICATIONS: Include; 1. Lopressor 50 mg twice a day. 2. Hydralazine 75 mg three times a day. 3. Clonidine 0.2 mg t.i.d. 4. Augmentin 875 mg twice a day for five additional days. PROCEDURES: Procedures done during the admission, the patient had a CT scan of the brain showing diffuse infiltrating white matter hypodensity through each of the cerebral hemispheres, more pronounced on the left. This could be related to reversible encephalopathy syndrome or PRES. The patient had an MRI of the brain, and this demonstrated findings suggestive of posterior reversible encephalopathy syndrome. There is a subtle focus of hemorrhage in the left frontal intraparenchymal subcortical white matter. The patient had an emergent . She also had an echocardiogram, in which the ejection fraction was estimated at 60% to 65%. There was some left ventricular hypertrophy noted. CODE STATUS: Full code. ALLERGIES: NO KNOWN DRUG ALLERGIES. HOSPITAL COURSE: Ms. Hall is a 33-year-old female, who presented to the emergency room after having a syncopal episode. She had a known that she thought was around 20 weeks. This syncopal episode was following the use of cocaine and PCP. She was found to be extremely hypertensive in the ER with pressures as high as 195/122. She was admitted to the ICU and FOOD WRITER was consulted. The patient's fetus was found to be in distress and she had to undergo an emergent . She remained in the ICU until her blood pressure was controlled. After her blood pressure was out of the danger region and her mental status had improved, she was able to be transferred to the telemetry unit. At the time of discharge, her blood pressure had come down around to the 160/90 range and heart rate in the 70s. She was given a referral to the [facility] [place]. She also has Medicaid and should as a result be able to afford her medications. The importance of compliance was discussed with the patient. She was subsequently discharged home on 09/28/2018. Job ID: [id number]
== END 2018-09-28 16:43 | disposition home or self-care (01) | DRG 786 ==
LOC: EDBD 09:18 → EDSEX 09:18 → ERS 09:18 → L&D/OP 09:18 → EDSTATUS 10:11 → L&D 10:35 → CCU 12:56 → 2NO 09-27 15:05
PROVIDERS: ADMIT Obstetrics & Gynecology; ATTEND Obstetrics & Gynecology
PROC: 10D00Z1 Extraction of Products of Conception, Low, Open Approach (ICD-10-PCS; principal; 2018-09-20)
PROC: 5A1945Z Respiratory Ventilation, 24-96 Consecutive Hours (ICD-10-PCS; 2018-09-20)
PROC: 0B9F8ZX Drainage of Right Lower Lung Lobe, Via Natural or Artificial Opening Endoscopic, Diagnostic (ICD-10-PCS; 2018-09-22)
PROC: 0B9F8ZX Drainage of Right Lower Lung Lobe, Via Natural or Artificial Opening Endoscopic, Diagnostic (ICD-10-PCS; 2018-09-23)
DX: O76 Abnormality in fetal heart rate and rhythm complicating labor and delivery (principal); I67.83 Posterior reversible encephalopathy syndrome; J18.9 Pneumonia, unspecified organism; J96.01 Acute respiratory failure with hypoxia; O99.324 Drug use complicating childbirth; I16.1 Hypertensive emergency; D62 Acute posthemorrhagic anemia; I67.4 Hypertensive encephalopathy; O16.4 Unspecified maternal hypertension, complicating childbirth; O75.89 Other specified complications of labor and delivery; F14.90 Cocaine use, unspecified, uncomplicated; F16.10 Hallucinogen abuse, uncomplicated; O99.52 Diseases of the respiratory system complicating childbirth; O14.94 Unspecified pre-eclampsia, complicating childbirth; Z3A.30 30 weeks gestation of pregnancy; Z37.0 Single live birth; O99.02 Anemia complicating childbirth; O99.334 Smoking (tobacco) complicating childbirth; F17.210 Nicotine dependence, cigarettes, uncomplicated; Z67.10 Type A blood, Rh positive; Z91.19 Patient's noncompliance with other medical treatment and regimen; S00.11XA Contusion of right eyelid and periocular area, initial encounter; W19.XXXA Unspecified fall, initial encounter
CPT/HCPCS: 36415; 36416; 51701; 51702; 70450; 70553; 71045; 76805; 76819; 80048; 80053; 80076; 80306; 80307; 81003; 81015; 82570; 82805; 83735; 84156; 84443; 84703; 85025; 86780; 86850; 86900; 86901; 87070; 87077; 87340; 87389; 88307; 93005; 93306; 94002; 94003; 96374; 99285; A4216; A4353; C9113; J0360; J0702; J1650; J1940; J2060; J2250; J2270; J2405; J2543; J2550; J2590; J2704; J3010; J3475; J3480; J3490; J7050; J7070